=== PATIENT | female | born 1950 | race Caucasian/White ===

== ENCOUNTER 2024-04-02 08:23 | Outpatient (CLI) | payer OTHER, SELFPAY ==
--- NOTE | 2024-04-02 09:59 | W.ANESCHARGE ---
Anesthesia Charges Start Date/Time Anesthesia Start Date: 04/02/24 Anesthesia Start Time: 09:31 Stop Date/Time Anesthesia Stop Date: 04/02/24 Anesthesia Stop Time: 09:57 Summary Extremes of Age - Over 70 or under 1: [employer]
--- NOTE | 2024-04-02 11:02 | W.ANESCHARGE ---
Anesthesia Charges Start Date/Time Anesthesia Start Date: 04/02/24 Anesthesia Start Time: 09:31 Stop Date/Time Anesthesia Stop Date: 04/02/24 Anesthesia Stop Time: 09:57 Summary Extremes of Age - Over 70 or under 1: MDA
== END 2024-04-02 08:24 | disposition home or self-care (01) ==
LOC: OP CLINIC 08:27
PROVIDERS: Visit Provider Internal Medicine Gastroenterology
DX: R13.10 Dysphagia, unspecified (principal); K22.2 Esophageal obstruction; K21.00 Gastro-esophageal reflux disease with esophagitis, without bleeding; K44.9 Diaphragmatic hernia without obstruction or gangrene; Q39.6 Congenital diverticulum of esophagus; R93.3 Abnormal findings on diagnostic imaging of other parts of digestive tract
CPT/HCPCS: 00731; 43239; 88305; 99100; J2704; J3010